=== PATIENT | female | born 1945 | race Caucasian/White ===

== ENCOUNTER 2017-07-14 06:44 | Day surgery (SDC) | payer MEDICARE ==
[2017-07-14 07:05] VITALS: BMI 24.7
[2017-07-14] MEDS ORDERED: Midazolam 2 MG/2 ML VIAL ONE (09:25)
[2017-07-14] MEDS ORDERED: Propofol 10 mg/ml Inj (20 ML) ONE (09:25)
[2017-07-14] MEDS ORDERED: Lactated Ringer's 1,000 ML IV ONE (09:30)
[2017-07-14 10:06] VITALS: O2SAT 100
[2017-07-14 10:57] VITALS: BP 141/64; PULSE 69; RESP 17; TEMP 97.2
== END 2017-07-14 10:50 | disposition home or self-care (01) ==
LOC: C.ENDO 06:44
PROVIDERS: ATTEND Internal Medicine Gastroenterology
DX: Z12.11 Encounter for screening for malignant neoplasm of colon (principal); K57.30 Diverticulosis of large intestine without perforation or abscess without bleeding; K64.4 Residual hemorrhoidal skin tags; K64.0 First degree hemorrhoids; Z86.010 Personal history of colon polyps
CPT/HCPCS: 45378; J2250; J2704; J7120